=== PATIENT | male | born 1995 | race Two or more races ===

== ENCOUNTER 2017-04-18 11:22 | Emergency (ER) | payer OTHER | END 2017-04-18 12:05 | disposition home or self-care (01) | LOC: CED 11:22 → CFTX 11:22 | DX: T22.10XA Burn of first degree of shoulder and upper limb, except wrist and hand, unspecified site, initial encounter (principal); Z23 Encounter for immunization; X10.2XXA Contact with fats and cooking oils, initial encounter; Y92.9 Unspecified place or not applicable | CPT/HCPCS: 16020; 90471; 90715; 99283 ==